=== PATIENT | female | born 1995 | race Caucasian/White ===

== ENCOUNTER → 2016-07-30 | Outpatient (CLI) | payer MEDICARE, OTHER ==
--- NOTE | ~2016-07-30 | CR58 ---
[facility] A Service of [facility] RADIOLOGY TEXT RESULTS PATIENT: JAMES HERRERA LOCATION: [facility] : [birth year] UNIT #: [id number] AGE: [address]: Tiffanie Nair MD SEX: F ORDER DR: [id number] [facility] [address] [place], [place] [address] [id number] O MR#: [id number] Acc #: [id number] NAME: JAMES HERRERA : 1995 SEX: F STUDY DATE/TIME: 07/30/2016 14:52 UNIT: [facility] ROOM: STUDY DESCRIPTION: CR Cervical Spine 2 or 3 Views Attending Physician: Tiffanie Nair M.D. Referring Physician: Tiffanie Nair M.D. Ordering Physician: Tfifanie Nair M.D. Primary Care Physician: Tiffanie aNir M.D. MEDICAL IMAGING REPORT This report is preliminary unless electronic signature is present EXAM C-spine, 3 views HISTORY History of Down syndrome, evaluate for atlantoaxial instability. FINDINGS Neutral and flexion/extension lateral views of the C-spine were obtained. Examination demonstrates normal cervical motion with flexion/extension views. No abnormal motion identified at the atlantoaxial joint to suggest atlantoaxial instability. The atlantoaxial distance remains stable on both flexion/extension and neutral views. No abnormal motion in the posterior arch of C1. Prevertebral soft tissues appear normal. The remainder of the visualized cervical spine unremarkable. IMPRESSION Flexion/extension lateral views demonstrates no evidence of atlantoaxial instability. Dictated by... Luis Feliciano M.D. THIS IS AN ELECTRONICALLY VERIFIED REPORT Luis Feliciano M.D. at 07/31/2016 12:28 PM LYN/ekta TD: 07/30/2016 22:16 JOB #: [id number] MEDICAL IMAGING REPORT Page 1 of 1 COPY
== END | disposition home or self-care (01) ==
LOC: CRAD 14:24
DX: Q90.9 Down syndrome, unspecified (principal)
CPT/HCPCS: 72040